=== PATIENT | male | born 1970 | race Caucasian/White ===

== ENCOUNTER → 2016-09-12 | Outpatient (CLI) | payer BC ==
--- NOTE | 2016-09-12 12:09 | DIAGNOSTIC IMAGING REPORT ---
ABDOMEN COMPLETE (US) CLINICAL HISTORY: Abdominal pain and bloating. COMPARISON STUDY: No previous studies for comparison. FINDINGS: The liver morphology is normal. There is no biliary ductal dilatation.. A few tiny gallbladder polyps measure up to 3 mm. No shadowing calculi are present. There is no gallbladder wall thickening. The pancreas is sonographically normal although the tail is slightly obscured. The size of the spleen is normal. The right kidney measures 10.9 cm in maximal dimension. The left measures 10.5 cm. There is no hydronephrosis. No calculi are identified. Note is made of a 2.2 cm echogenic lesion arising from the upper pole of the right kidney. The caliber of the abdominal aorta is normal. Visualized portions of the IVC are patent. IMPRESSION: 1. No gallstones or biliary ductal dilatation. A few tiny gallbladder polyps measuring up to 3 mm. 2. 2.2 cm echogenic lesion arising from the upper pole of the right kidney. This likely reflects an angiomyolipoma, a benign lesion. However, a follow-up renal protocol CT is recommended for confirmation. 3. No hydronephrosis. Electronically signed by: Sean Saini M.D. 09/12/2016 12:07 PM Dictated Date/Time: 09/12/2016 12:04 PM
== END | disposition home or self-care (01) ==
LOC: C.ULTRBC 10:52
PROVIDERS: ATTEND Internal Medicine Gastroenterology
DX: R10.9 Unspecified abdominal pain (principal)

== ENCOUNTER → 2016-09-13 | Outpatient (CLI) | payer BC ==
[~2016-09-13] MED LIST: OPTIRAY 320 IV PRN
--- NOTE | 2016-09-13 18:45 | DIAGNOSTIC IMAGING REPORT ---
CT OF THE ABDOMEN AND PELVIS WITH AND WITHOUT CONTRAST RENAL PROTOCOL CLINICAL HISTORY: Right kidney lesion. COMPARISON STUDY: Abdominal ultrasound September 12, 2016. TECHNIQUE: Initially, unenhanced images of the abdomen were obtained. Nephrographic phase imaging of the abdomen and pelvis was then performed following intravenous injection of 116 cc of Optiray 320 IV. Delayed phase imaging of the abdomen was then performed. CT DOSE: 621.52 mGy.cm FINDINGS: Lung bases are clear. The liver, spleen, adrenal glands and pancreas as well as the left kidney are normal. Note is made of a 2.2 cm fatty lesion arising from the upper pole of the right kidney. This lesion is composed of almost entirely fat. There may be several small vessels within this lesion. This corresponds to the lesion shown on prior renal ultrasound. This is consistent with an angiomyolipoma. No additional renal lesions are present. There is no lymphadenopathy. There is mild bladder wall thickening. A moderate amount stool within the rectum is noted. There is no evidence for a bowel obstruction. The appendix is normal. No suspicious osseous lesions are present. IMPRESSION: 1. 2.2 cm fat containing lesion arising from the upper pole of the right kidney which corresponds to the lesion shown on prior ultrasound. This is consistent with an angiomyolipoma, a benign lesion. 2. Mild bladder wall thickening, a nonspecific finding which could be correlated with urinalysis. 3. Moderate amount of stool within the colon and rectum. No bowel obstruction. Electronically signed by: Sean Saini M.D. 09/13/2016 6:44 PM Dictated Date/Time: 09/13/2016 6:36 PM
== END | disposition home or self-care (01) ==
LOC: C.CTS 15:06
PROVIDERS: ATTEND Internal Medicine Gastroenterology
DX: N28.9 Disorder of kidney and ureter, unspecified (principal); D30.01 Benign neoplasm of right kidney